=== PATIENT | female | born 1995 | race Caucasian/White ===

== ENCOUNTER 2018-12-18 18:37 | Emergency (ER) | payer BC, OTHER ==
[2018-12-18 18:50] VITALS: BP 117/76; PULSE 99; TEMP 98.3; BMI 22.8
--- NOTE | 2018-12-18 18:50 | PDOC ---
Rapid Medical Evaluation Time Seen by Provider: 12/18/18 18:48 Medical Evaluation: Allergies Allergy/AdvReac Type Severity Reaction Status Date / Time No Known Allergies Allergy Verified 07/05/14 18:57 12/18/18 18:49 I have performed a brief in-person evaluation of this patient. The patient presents with a chief complaint of: possible ectopic Pertinent physical exam findings:stable and in NAD, non-focal I have ordered the following:labs The patient will proceed to the ED for further evaluation.
--- NOTE | 2018-12-18 19:09 | PDOC ---
History of Present Illness - General Chief Complaint: Pain, Acute Stated Complaint: EVALUATION Time Seen by Provider: 12/18/18 18:48 History Source: Patient Exam Limitations: No Limitations - History of Present Illness Initial Comments: 12/19/18 19:35 HPI: 23F no significant PMH sent in from [facility] for r/o ectopic . pos home test; [facility] saw nothing on US today. LMP 11/18/18. Endorsing mild nausea, breast tenderness, urinary frequency, and slight abdominal discomfort. Denies abnormal vaginal discharge, bleeding, and pain. + h/o trichomoniasis. Not on control. PMH: thrombocytopenia MEDs: none [facility]: Mic Mcqueen Past History - Past Medical History Allergies/Adverse Reactions: Allergies Allergy/AdvReac Type Severity Reaction Status Date / Time No Known Allergies Allergy Verified 12/18/18 18:50 Home Medications: Ambulatory Orders NK [No Known Home Medication] 12/18/18 Anemia: Yes (BIOIMMUNODEFICIENCY ANEMIA, THROMBOCYTOPENIA) COPD: No - Psycho Social/Smoking Cessation Hx Smoking History: Never smoked Hx Alcohol Use: No Drug/Substance Use Hx: No Review of Systems - Review of Systems Able to Perform ROS?: Yes Comments:: 12/19/18 19:35 ROS: CONSTITUTIONAL: DENIES F/C RESP: DENIES SOB CARD: DENIES CP GI: ENDORSES MILD NAUSEA AND ABDOMINAL DISCOMFORT. DENIES VOMITING, ABDOMINAL PAIN : ENDORSES URINARY FREQUENCY. DENIES DYSURIA, HEMATURIA. + ROS were endorsed since sunday. Is the patient limited Estonian proficient: No *Physical Exam - Vital Signs Last Vital Signs Temp Pulse Resp BP Pulse Ox 98.3 F 99 H 16 117/76 99 12/18/18 18:47 12/18/18 18:47 12/18/18 18:47 12/18/18 18:47 12/18/18 18:47 - Physical Exam Comments: 12/19/18 19:35 PE: GEN: well appearing. AAOx3 HEENT: NC/AT, EOMI, PERRLA. No facial asymmetry. Moist mucous membranes. Normal voice. Supple neck w/ FROM. CV: S1/S2, RRR, no m/r/g LUNG: CTAB, no wheezes, crackles, rales, rhonchi. GI: soft, ndnt, +BS, no guarding, no rebound. No masses. PELVIC: No discharge, bleeding, and atrophy on inspection. Cervical os close with scant thick white discharge but no active bleeding or tissue projection. No blood in vault. Neg CMT on bimanual exam. EXTREMITIES: No obvious deformities of all extremities SKIN: warm, dry, normal turgor PSYCH: tearful, anxiety, guarded NEURO: Moving all extremities well ED Treatment Course - LABORATORY CBC & Chemistry Diagram: 12/18/18 18:58 12/18/18 18:58 Medical Decision Making - Medical Decision Making 12/18/18 19:31 MDM: 23F LMP 11/18/18 POS home test sent in by [facility] for r/o ectopic. Given LMP, patient likely up to 4 weeks , IUP unlikely detectable on US at this point. Pos - CBC, CMP, HCG - UA - US 12/18/18 21:05 labs reviewed + hCG 1500 US showing fluid focus w/i endometrial cavity Discharge home w/ 2 day hCG f/u, [facility] f/u, and return precautions Discharge - Discharge Information Problems reviewed: Yes Clinical Impression/Diagnosis: Qualifiers: Weeks of gestation: less than 8 weeks Qualified Code(s): Z3A.01 - Less than 8 weeks gestation of Condition: Stable Disposition: HOME - Admission No - Follow up/Referral - Patient Discharge Instructions Patient Printed Discharge Instructions: DI for -- Discomforts and Remedies Additional Instructions: You were seen and evaluated in the Emergency Department. The blood test found that you are , see the attached documents for information regarding . Start and continue taking vitamins with folate. You can find these in the vitamin aisle. We would like you to follow up your levels in the next 2 days. You may do this at your [facility]ARM EQUIPMENT MECHANIC APPRENTICE, Primary Care, or ED. Follow up with your FARM EQUIPMENT MECHANIC APPRENTICE in the next 7 days regarding the results. IMMEDIATELY return to the ED if you experience any of the following: - severe abdominal pain - high fevers - vaginal bleeding - ANYTHING that concerns you - Post Discharge Activity
[2018-12-18 19:12] LABS: BASO % 0.4 % (0-2.0); EOS % 0.7 % (0-4.5); HEMATOCRIT 41.1 % (32.4-45.2); HEMOGLOBIN 13.9 GM/dL (10.7-15.3); LYMPH % 24.5 % (8-40); MCH 31.4 pg (25.7-33.7); MCHC 33.8 g/dl (32.0-36.0); MEAN CELL VOLUME 92.9 fl (80-96); MEAN PLT VOLUME 11.9 fl (7.5-11.1); MONO % 6.1 % (3.8-10.2); NEUT % 68.3 % (42.8-82.8); PLATELET COUNT 109 K/MM3 (134-434); RBC 4.42 M/mm3 (3.60-5.2); RDW 12.3 % (11.6-15.6); WHITE BLOOD COUNT 7.4 K/mm3 (4.0-10.0)
[2018-12-18 19:14] LABS: PH,URINE 5.5 (5.0-8.0); URINE APPEARANCE CLEAR; URINE BILIRUBIN NEGATIVE (NEGATIVE); URINE COLOR YELLOW; URINE GLUCOSE (UA) NEGATIVE (NEGATIVE); URINE KETONE 1+ (NEGATIVE); URINE LEUK ESTERASE NEGATIVE (NEGATIVE); URINE NITRITE NEGATIVE (NEGATIVE); URINE PROTEIN NEGATIVE (NEGATIVE); URINE UROBILINOGEN 0.2 mg/dL (0.2-1.0)
--- NOTE | 2018-12-18 19:50 | PDOC ---
Documentation entered by Mic Richard SCRIBE, acting as scribe for Mony Nayak DO. Mony Nayak DO: This documentation has been prepared by the Jose Manuel parker Daniel, SCRIBE, under my direction and personally reviewed by me in its entirety. I confirm that the documentation accurately reflects all work, treatment, procedures, and medical decision making performed by me. Attending Attestation - Resident Resident Name: RoyCristi - ED Attending Attestation I have performed the following: I have examined & evaluated the patient, The case was reviewed & discussed with the resident, I agree w/resident's findings & plan, Exceptions are as noted - HPI HPI: 12/18/18 19:37 The patient is a 23 year old female with a past medical history of thrombocytopenia here today for evaluation to rule out ectopic . The patient was sent in today by her OB to rule out ectopic . Patient reports that she has had mild nausea and left sided abdominal cramping. Patient denies headache, lightheadedness. Denies fever, chills. Denies chest pain, shortness of breath. Denies vomiting, diarrhea. Allergies: NKA OBGYN: Mic Mcqueen - Physicial Exam PE: 12/18/18 19:37 Constitutional: Awake, alert, oriented. No acute distress. Head: Normocephalic. Atraumatic Eyes: PERRL. EOMI. Conjunctivae are not pale. ENT: Mucous membranes are moist and intact. Posterior pharynx without exudates or erythema. Uvula midline. Neck: Supple. Full ROM. No lymphadenopathy. Cardiovascular: Regular rate. Regular rhythm. S1, S2 regular. Distal pulses are 2+ and symmetric. Pulmonary/Chest: No evidence of respiratory distress. Clear to auscultation bilaterally No wheezing, rales or rhonchi. Abdominal: Soft and non-distended. There is no tenderness. No rebound, guarding or rigidity. No organomegaly. No palpable masses. Good bowel sounds. Pelvic: No cmt or adnexal tenderness. Os closed. White physiological discharge. Back: No CVA tenderness. Musculoskeletal: No edema. No cyanosis. No clubbing. Full range of motion in all extremities. No calf tenderness. Radial/pedal pulses are intact and 2+ bilaterally Skin: Skin is warm and dry. No petechiae. No purpura. Neurological: Alert and oriented to person, place, and time. Cranial nerves II -XII are grossly intact. Normal speech. Strength is grossly symmetric. No sensory deficits. Psychiatric: Good eye contact. Normal interaction, affect and behavior. - Medical Decision Making 12/18/18 19:47 I, Dr. Mony Nayak, DO, attest that this document has been prepared under my direction and personally reviewed by me in its entirety. I further attest, that it accurately reflects all work, treatment, procedures and medical decision -making performed by me. a/p: 23yo female at about 4 weeks gestation send from [facility] - Dr. Mcqueen for eval of poss ectopic preg +preg test on sunday -saw ledger poster today who did an ultrasound but did not see IUP -pt denies abd cramping, bleeding, discharge -pt states mild nausea and breast tenderness, no discharge -pt denies dysuria, c/o urinary freq -labs sent from [facility] show +upreg, neg ua, normal cbc -beta hcg serum pending -pt is nontoxic in appearance -fldmp was 11/1812/18/18 20:08 beta 1500 12/18/18 21:16 O+ pt with early preg small cyst on the ultrasound, but no iup seen needs repeat beta in 2 days and repeat ultrasound and follow up with [facility] TE[facility]NIC[facility] stable for dc to home and needs to start taking vitamins
[2018-12-18 19:57] LABS: ALBUMIN 4.2 g/dl (3.4-5.0); BILIRUBIN,TOTAL 0.4 mg/dL (0.2-1); BLOOD UREA NITROGEN 11.3 mg/dL (7-18); CALCIUM 8.4 mg/dL (8.5-10.1); CREATININE 0.7 mg/dL (0.55-1.3); POTASSIUM 3.7 mmol/L (3.5-5.1); TOT PROT 7.3 g/dl (6.4-8.2)
== END 2018-12-18 21:29 | disposition home or self-care (01) ==
LOC: JER 18:37
DX: Z3A.01 Less than 8 weeks gestation of pregnancy (principal)
CPT/HCPCS: 36415; 76817-TC; 80053; 81003; 84702; 84703; 85025; 86850; 86900; 86901; 87086; 99283-25

== ENCOUNTER 2019-01-09 12:14 | Emergency (ER) | payer OTHER ==
[2019-01-09 12:27] VITALS: TEMP 98.2; BMI 22.1
[2019-01-09] MEDS ORDERED: SODIUM CHLORIDE 1,000 ML IV STA (13:05)
[2019-01-09] MEDS ORDERED: ACETAMINOPHEN 1000 MG/100 ML VIAL (NON FORMULARY) IVPB ONE (13:05)
[2019-01-09] MEDS ORDERED: ACETAMINOPHEN INJECTION 100 ML IVPB ONE (13:11)
--- NOTE | 2019-01-09 13:14 | PDOC ---
*Physical Exam - Vital Signs Last Vital Signs Temp Pulse Resp BP Pulse Ox 98.2 F 97 H 18 114/84 98 01/09/19 12:24 01/09/19 12:24 01/09/19 12:24 01/09/19 12:24 01/09/19 12:24 ED Treatment Course - LABORATORY CBC & Chemistry Diagram: 01/09/19 13:15 01/09/19 13:15 Medical Decision Making - Medical Decision Making 01/09/19 13:14 Pt seen by Midlevel Provider under my direct supervision 23-year-old female presenting to the emergency department with a complaint of vaginal bleeding. G1, P0 She was last seen by her EMPLOYMENT COACH within the last week At that time heart rate (if patient remembers correctly) was 90 Patient continues to have vaginal bleeding and is concerned Pt interviewed and examined On examination: Patient is not tachycardic Lungs are clear No suprapubic tenderness to palpation Pelvic examination per BAO Ancillary studies reviewed Laboratory Tests 01/09/19 01/09/19 13:15 13:15 Beta HCG, Quant 96159.5 Blood Type O POSITIVE Ultrasound: Incomplete with blood and products of conception within endometrial cavity I agree with plan as outlined by Midlevel Provider 01/09/19 15:14 Patient will need to follow-up with OB Given copy of her Inevitable AB 01/09/19 15:17 Discharge - Discharge Information Problems reviewed: Yes Clinical Impression/Diagnosis: Spontaneous Condition: Stable Disposition: HOME - Admission No - Follow up/Referral Referrals: Mic Mcqueen [Non Staff, Medical] - Call tomorrow - Patient Discharge Instructions Patient Printed Discharge Instructions: Dealing With Miscarriage Additional Instructions: Your vaginal ultrasound shows no intrauterine with mild blood in the uterus which is consistent with miscarriage. Follow-up with your EMPLOYMENT COACH as discussed. Take Motrin as needed for pain. Call your EMPLOYMENT COACH tomorrow to make immediate follow-up appointment. Come back to emergency room if worsening bleeding with dizziness, weakness, palpitations. - Post Discharge Activity Work/Back to School Note: Back to Work
--- NOTE | 2019-01-09 13:20 | PDOC ---
History of Present Illness - General Chief Complaint: Vaginal Bleeding Stated Complaint: POSSIBLE MISCARRIAGE Time Seen by Provider: 01/09/19 12:32 History Source: Patient Exam Limitations: Clinical Condition - History of Present Illness Travel History: No Initial Comments: 01/09/19 13:16 Patient G1, P0 LMP November 08 with history of ITP presenting with complaint of vaginal bleeding for 3 days 6 weeks . Patient reports she started having intermittent bleeding 3 days ago soaking 1 pad a day which she followed up with her MEAT STUFFER 2 days ago for symptoms and was found to have heart rate of 96 bpm and was advised baby could go either way either miscarriage or continuous but started having cramping lower abdominal pain yesterday still soaking 1 pad per day which has worsened overnight. Patient reported using 3 pads today which was completely soaked. Patient reported worsening cramping lower abdominal pain with bleeding. Denies, palpitation, shortness of breath or weakness. Denies dizziness, lightheadedness, chest pain. Timing/Duration: reports: getting worse Quality: reports: cramping Abdominal Pain Onset Location: reports: suprapubic Pain Radiation: reports: no radiation Past History - Past Medical History Allergies/Adverse Reactions: Allergies Allergy/AdvReac Type Severity Reaction Status Date / Time No Known Allergies Allergy Verified 01/09/19 12:27 Home Medications: Ambulatory Orders NK [No Known Home Medication] 12/18/18 Anemia: Yes (BIOIMMUNODEFICIENCY ANEMIA, THROMBOCYTOPENIA) COPD: No - Reproductive History Is Patient Now?: Yes (#): 1 Para: 0 Cervical CA: No Dysfunctional Uterine Bleeding: No Ectopic : No Endometrial CA: No Polycystic Ovaries: No Tubal Ligation: No Spontaneous : 0 - Psycho Social/Smoking Cessation Hx Smoking History: Never smoked Hx Alcohol Use: No Drug/Substance Use Hx: No Review of Systems - Review of Systems Able to Perform ROS?: Yes Is the patient limited Telugu proficient: No Constitutional: No: Malaise, Weakness HEENTM: No: Symptoms Reported, Blurred Vision, Double Vision Respiratory: No: Symptoms reported, Shortness of Breath Cardiac (ROS): No: Symptoms Reported, See HPI, Chest Pain, Edema, Irregular Heart Rate, Lightheadedness, Palpitations, Syncope, Chest Tightness, Other ABD/GI: Yes: Symptoms Reported, See HPI, Abdominal cramping. No: Constipated, Diarrhea, Difficulty Swallowing, Nausea, Poor Appetite, Rectal Bleeding, Vomiting, Indigestion : Yes: Symptoms Reported, See HPI, Other (vaginal bleeding). No: Dysuria, Frequency, Flank Pain, Urgency Neurological: No: Symptoms reported, Headache, Weakness, Dizziness All Other Systems: Reviewed and Negative *Physical Exam - Vital Signs Last Vital Signs Temp Pulse Resp BP Pulse Ox 98.2 F 97 H 18 114/84 98 01/09/19 12:24 01/09/19 12:24 01/09/19 12:24 01/09/19 12:24 01/09/19 12:24 - Physical Exam General Appearance: Yes: Nourished, Appropriately Dressed, Apparent Distress, Mild Distress HEENT: positive: Normal ENT Inspection Neck: positive: Supple Respiratory/Chest: positive: Lungs Clear, Normal Breath Sounds. negative: Chest Tender, Respiratory Distress, Accessory Muscle Use Cardiovascular: positive: Regular Rhythm, Regular Rate Female Pelvic Exam: positive: normal external exam, cervical os closed, normal adnexa, vaginal bleeding (small amount of blood in vaginal vault. no active vaginal bleeding. no blood pooling in vagina). negative: adnexal tenderness Gastrointestinal/Abdominal: positive: Normal Bowel Sounds, Tender, Flat, Soft. negative: Organomegaly Musculoskeletal: positive: Normal Inspection Extremity: positive: Normal Inspection Integumentary: positive: Normal Color Neurologic: positive: Fully Oriented, Alert, Normal Mood/Affect, Normal Response ED Treatment Course - LABORATORY CBC & Chemistry Diagram: 01/09/19 13:15 01/09/19 13:15 - RADIOLOGY Radiology Studies Ordered: Category Date Time Status TRANSVAGINAL US PREG [US] Stat Ultrasound 01/09/19 13:04 Ordered Medical Decision Making - Medical Decision Making 01/09/19 13:18 Patient G1, P0 LMP November 08 with history of ITP presenting with complaint of vaginal bleeding for 3 days 6 weeks . Patient reports she started having intermittent bleeding 3 days ago soaking 1 pad a day which she followed up with her MEAT STUFFER 2 days ago for symptoms and was found to have heart rate of 96 bpm and was advised baby could go either way either miscarriage or continuous but started having cramping lower abdominal pain yesterday still soaking 1 pad per day which has worsened overnight. Patient reported using 3 pads today which was completely soaked. Patient reported worsening cramping lower abdominal pain with bleeding. Denies, palpitation, shortness of breath or weakness. Denies dizziness, lightheadedness, chest pain. Exam significant for small amount of dark blood in vaginal vault with mild vaginal bleeding with tissue from cervical os. No blood pooling in vaginal canal. External cervical os open to fingertip, internal cervical os closed. No cervical motion tenderness. No more blood after vaginal vault after clean with ring forceps and 4 x 4 gauze. Symptoms likely spontaneous versus threatened AB. CBC, CMP and beta-hCG labs ordered. Transvaginal ultrasound ordered to evaluate for . IV hydration with 1 L normal saline and Tylenol 1 g IV ordered for abdominal pain and cramping. Treat based on lab and imaging results 01/09/19 15:31 Beta-hCG today 16,000 which is a drop of 19,000 from beta-hCG done from [facility] 2 weeks ago. Called and spoke to patient MEAT STUFFER Dr. Mic Mcqueen's office who confirmed IUP at the clinic yesterday with heart rate of 96 bpm. Repeat ultrasound today shows no IUP with small amount of blood in uterus consistent with miscarriage. Results and findings discussed with patient and patient advised to follow-up with your MEAT STUFFER. Patient stable for discharge Discharge - Discharge Information Problems reviewed: Yes Clinical Impression/Diagnosis: Spontaneous Condition: Stable Disposition: HOME - Admission No - Follow up/Referral Referrals: Mic Mcqueen [Non Staff, Medical] - Call tomorrow - Patient Discharge Instructions Patient Printed Discharge Instructions: Dealing With Miscarriage Additional Instructions: Your vaginal ultrasound shows no intrauterine with mild blood in the uterus which is consistent with miscarriage. Follow-up with your MEAT STUFFER as discussed. Take Motrin as needed for pain. Call your MEAT STUFFER tomorrow to make immediate follow-up appointment. Come back to emergency room if worsening bleeding with dizziness, weakness, palpitations. - Post Discharge Activity
[2019-01-09 13:29] LABS: BASO % 0.4 % (0-2.0); EOS % 1.5 % (0-4.5); HEMATOCRIT 40.6 % (32.4-45.2); LYMPH % 22.3 % (8-40); MCH 31.1 pg (25.7-33.7); MCHC 34.6 g/dl (32.0-36.0); MEAN CELL VOLUME 90.1 fl (80-96); MEAN PLT VOLUME 11.9 fl (7.5-11.1); MONO % 6.4 % (3.8-10.2); NEUT % 69.4 % (42.8-82.8); PLATELET COUNT 108 K/MM3 (134-434); RDW 12.3 % (11.6-15.6)
[2019-01-09 13:55] LABS: BILIRUBIN,TOTAL 0.4 mg/dL (0.2-1); BLOOD UREA NITROGEN 7.4 mg/dL (7-18); CALCIUM 8.8 mg/dL (8.5-10.1); CREATININE 0.6 mg/dL (0.55-1.3); POTASSIUM 3.9 mmol/L (3.5-5.1); TOT PROT 7.2 g/dl (6.4-8.2)
[2019-01-09 15:07] VITALS: BP 105/65; PULSE 65
== END 2019-01-09 15:46 | disposition home or self-care (01) ==
LOC: JER 12:14
PROC: 3E033NZ Introduction of Analgesics, Hypnotics, Sedatives into Peripheral Vein, Percutaneous Approach (ICD-10-PCS; principal; 2019-01-09)
DX: O26.891 Other specified pregnancy related conditions, first trimester (principal); O03.9 Complete or unspecified spontaneous abortion without complication; O99.111 Other diseases of the blood and blood-forming organs and certain disorders involving the immune mechanism complicating pregnancy, first trimester; O99.011 Anemia complicating pregnancy, first trimester; D69.6 Thrombocytopenia, unspecified; Z3A.01 Less than 8 weeks gestation of pregnancy
CPT/HCPCS: 36415; 76817-TC; 80053; 84702; 85025; 86850; 86900; 86901; 99283-25; J0131; J7030